=== PATIENT | female | born 1995 | race African-American/Black ===

== ENCOUNTER 2018-04-06 19:00 | Emergency (ER) | payer BC, OTHER ==
[2018-04-06] MEDS ORDERED: 0.9 % SODIUM CHLORIDE 1,000 ML IV ONE (19:25)
[2018-04-06] MEDS ORDERED: ONDANSETRON HCL/PF 4 MG/ 2ML VIAL IVP ONE (19:26)
[2018-04-06] MEDS ORDERED: HYDROmorphone HCL/PF 1 MG/ML VIAL IVP ONE (19:36)
--- NOTE | 2018-04-06 19:36 | ED Physician Documentation ---
General Adult - HISTORIAN Historian: patient - HPI Chief Complaint: Abdominal Pain Additional Information: intro self as PRIMARY TEACHER. pt presents to the ED via POV c/o intermittent upper abd pain cramping for several weeks that has gradually worsened. currently 11/02. pt reports emesis x 4 today, chills. BM today-normal. LMP 03/10/18. not sexually active. not using control. Urine here negative. denies abnormal vaginal discharge or bleeding. pt denies current chest pain, dyspnea, syncope/near syncope, headache, dizziness, visual disturbances, diarrhea, fever/chills, rash, sick contacts, dysuria, trauma. melena or hematochezia, bleeding or easy bruising, change in bowel or bladder function, no recent weight loss/gain, anxiety or depression. ROS Negative unless otherwise specified. - ROS CONST: chills - PAST HX Past History: none Other History: none Surgeries/Procedures: none Allergies/Adverse Reactions: Allergies Allergy/AdvReac Type Severity Reaction Status Date / Time No Known Allergies Allergy Verified 04/06/18 19:38 Home Medications: Ambulatory Orders Medication Instructions Recorded NK 04/06/18 - SOCIAL HX Smoking History: non-smoker - FAMILY HX Family History: No - VITAL SIGNS Vital Signs: Vital Signs Temp Pulse Resp BP Pulse Ox 122/64 08/24/14 22:51 - REVIEWED ASSESSMENTS Nursing Assessment Reviewed: Yes Vitals Reviewed: Yes Progress - Progress Progress: 2100 pt reports mild itching after ativan administration No rash present. Benadryl ordered 25 mg. 2119: pt denies itching at this time. pt reports readiness for d/c ED Results Lab/Radiology - Radiology Radiology Impressions: Report Submission Date: Apr 06, 2018 8:30:07 PM DESKTOP ARCHITECT Patient Study Name: BHAVIN WATTS Date: Apr 06, 2018 8:08:23 PM DESKTOP ARCHITECT Modality Type: CT\SR Gender: F Description: CT ABD PELVIS W/ CON : 97 Institution: [facility] Physician: BHAVESH MUNROE Computed tomography abdomen pelvis with contrast History: 7 days of abdominal pain Findings: Transverse abdomen and pelvis sections are obtained after 95 mL intravenous Omnipaque 350. The lung bases, liver, gallbladder, spleen, pancreas, adrenals, kidneys, and great vessels are unremarkable. Fluid is present throughout the colon and small bowel without significant distention or or mural thickening. The lumbar spine is unremarkable. The appendix is not visualized but there is no evidence of acute appendicitis. Pelvic sections reveal decompressed sigmoid colon and rectum. The urinary bladder is nearly empty with borderline mural thickening. There is no uterine or adnexal mass. Minimal cul-de-sac fluid is normal. Impression: 1. Probable gastroenteritis. 2. Borderline urinary bladder wall thickening. Recommend correlation with urinalysis. Electronically signed on Apr 06, 2018 8:30:07 PM DESKTOP ARCHITECT by: Isidro De Santiago - Orders Orders: ED Orders Category Date Time Status CT ABD & PELVIS W/ CON Stat Exams 04/06/18 Ordered CBC/PLATELET/DIFF Routine Lab 04/06/18 Ordered CMP Routine Lab 04/06/18 Ordered LIPASE Stat Lab 04/06/18 Ordered URINALYSIS Routine Lab 04/06/18 Ordered 0.9 % Sodium Chloride [Normal Saline] 1,000 ml Med 04/06/18 19:25 Ordered IV NOW Ondansetron HCl/Pf [Zofran 4 mg/2 ml] Med 04/06/18 19:26 Once 4 mg IVP NOW ONE General Adult Physical Exam - PHYSICAL EXAM GENERAL APPEARANCE: mild distress EENT: eye inspection normal, ENT inspection normal, pharynx normal, no signs of dehydration, MARIE, no nystagmus, TM's nml NECK: normal inspection, thyroid normal RESPIRATORY: no resp distress, chest non-tender, breath sounds normal CVS: reg rate & rhythm, heart sounds normal, equal pulses, no murmur, no gallop, PMI nml, no JVD, no friction rub, 24 ABDOMEN: soft, no organomegaly, normal bowel sounds, no abdominal bruit, no distension, tenderness (RUQ), McBurney's point tenderne, guarding. No: rigid, obturator sign, rebound, Rovsing's sign BACK: normal inspection, no CVA tenderness SKIN: normal color, warm/dry, NR, INT, PAL, DR EXTREMITIES: non-tender, normal range of motion, no evidence of injury, no ed елена, J, PRIMARY TEACHER NEURO: oriented X3, motor nml, sensation nml, mood/affect nml Discharge Clincal Impression: Gastroenteritis Referrals: Primary Doctor,No [Primary Care Provider] - 2 Days Additional Instructions: Eat bland foods like soups, broth, crackers, bread, jello. Increase fluids like gatoraid or other electrolyte replacement Zofran 4 mg: ONE tab every 6 hours as needed for nausea. Follow up with primary care next week or before if not improving as expected. seek medical care immediately if difficult to wake, difficulty breathing, feeling faint or fainting, increased rash, chest pain, shortness of breath, or fever not controlled by tylenol/motrin or any concern. PLEASE UNDERSTAND THAT THIS IS AN EMERGENCY EVALUATION FOR YOUR COMPLAINT AND BY NATURE IS LIMITED AND NOT A SUBSTITUTE FOR ONGOING MEDICAL CARE. EVEN THOUGH TEST RESULTS AND TREATMENT PLAN WERE EXPLAINED THERE MAY BE A NEED FOR ADDITIONAL TESTING TO FULLY DETERMINE THE EXTENT OF YOUR ILLNESS/INJURY/OR CONCERN SO YOU SHOULD CONTACT AND OR ESTABLISH WITH A PRIMARY CARE PROVIDER (OR REFERRAL DOCTOR IF APPLICABLE) FOR AN APPOINTMENT SOON POSSIBLE. Condition: Good Disposition: 01 HOME, SELF-CARE Decision to Admit: NO Date of Decison to Admit: 04/06/18 Decision Time: 20:41
[2018-04-06] MEDS ORDERED: LORazepam 2 MG/ML VIAL IVP ONE (20:30)
[2018-04-06] MEDS ORDERED: diphenhydrAMINE HCL 50 MG/ML VIAL ONE (20:51)
[2018-04-06] MEDS ORDERED: diphenhydrAMINE HCL 50 MG/ML VIAL IVP ONE (21:19)
[2018-04-06 21:22] VITALS: BP 123/60
--- NOTE | 2018-04-07 06:07 | Diagnostic Imaging Report ---
BHAVESH MUNROE [facility] [id number] [facility] [address] [place] [address]. [id number] Report Submission Date: Apr 06, 2018 8:30:07 PM SHIPS EQUIPMENT ENGINEER Patient Study Name: BHAVIN WATTS Date: Apr 06, 2018 8:08:23 PM SHIPS EQUIPMENT ENGINEER Modality Type: CT\SR Gender: F Description: CT ABD PELVIS W/ CON : 97 Institution: [facility] Physician: BHAVESH MUNROE Computed tomography abdomen pelvis with contrast History: 7 days of abdominal pain Findings: Transverse abdomen and pelvis sections are obtained after 95 mL intravenous Omnipaque 350. The lung bases, liver, gallbladder, spleen, pancreas, adrenals, kidneys, and great vessels are unremarkable. Fluid is present throughout the colon and small bowel without significant distention or or mural thickening. The lumbar spine is unremarkable. The appendix is not visualized but there is no evidence of acute appendicitis. Pelvic sections reveal decompressed sigmoid colon and rectum. The urinary bladder is nearly empty with borderline mural thickening. There is no uterine or adnexal mass. Minimal cul-de-sac fluid is normal. Impression: 1. Probable gastroenteritis. 2. Borderline urinary bladder wall thickening. Recommend correlation with urinalysis. Electronically signed on Apr 06, 2018 8:30:07 PM SHIPS EQUIPMENT ENGINEER by: Isidro BLANCO
[2018-04-07 07:15] LABS: MEAN CORPUSCULAR HEMOGLOBIN 30.5 pg (28.0-34.0); eGFR (Non-African) > 60
[2018-04-07 07:16] LABS: BASOPHILS % 0.4 (0.0-1.5); EOSINOPHILS % 1.3 % (0.0-6.8); MONOCYTES % 2.6 % (0.0-11.0); NEUTROPHILS # 10.5 # k/uL (1.4-7.7)
[2018-04-07 09:49] LABS: APPEARANCE,URINE CLEAR (CLEAR); COLOR,URINE YELLOW (YELLOW); OCCULT BLOOD,URINE NEGATIVE (NEGATIVE); UROBILINOGEN URINE 0.2 Eu (0.2-1.0)
== END 2018-04-06 21:19 | disposition home or self-care (01) ==
LOC: ED 19:00
DX: K52.9 Noninfective gastroenteritis and colitis, unspecified (principal)
CPT/HCPCS: 36415; 74177; 80053; 81002; 83690; 85025; 96365; 96375; 99283; 99284; J1170; J1200; J2060; J2405; J7030; Q9967; S1016